=== PATIENT | male | born 1930 | race Caucasian/White ===

== ENCOUNTER 2019-03-10 21:25 | Emergency (ER) | payer MEDICARE, BC ==
[~2019-03-10] VITALS: Ht 172.7 cm; Wt 81.6 kg
[~2019-03-10 21:25] MED LIST: AMOX500C2 PO; ATORVASTATIN; NORVASC; SOTOLOL; WARFARIN
--- NOTE | 2019-03-10 22:10 | NUR ---
Patient ambulated with stable gait. Speech clear, speaks in complete sentences. Relatives at bedside for interpretation. A/Ox4. No neuro deficits. Patient came for c/o fever s/p dental work on Saturday. Per relative, patient developed a fever of 102F on saturday, and fever-like symptoms have been intermittent. Respiratory even and unlabored, no cough no sob. No cardiovascular distress noted. No GI/ distress noted. Patient in bed at lowest position, sr upx2, call light within reach. Fall precautions implemented per protocol. Two relatives at bedside.
--- NOTE | 2019-03-10 22:11 | NUR ---
ERMD at bedside for eval
[2019-03-10] MEDS ORDERED: CEFTRIAXONE 1 G in IV DEXTROSE 5% 50 ML IV ONE (22:30)
[2019-03-10] MEDS ORDERED: IV NORMAL SALINE 1000 ML BAG IV ONE (22:30)
[2019-03-10] MEDS ORDERED: CEFTRIAXONE 1 G VIAL ONE (22:40)
--- NOTE | 2019-03-10 23:31 | NUR ---
Patient discharged to home in stable conditon. Written and verbal after care instructions given. Patient verbalizes understanding of instructions. Patient ambulated with stable gait.
[2019-03-10 23:32] VITALS: BP 139/63
== END 2019-03-10 23:36 | disposition home or self-care (01) ==
LOC: ER 21:25
DX: R50.9 Fever, unspecified (principal); I10 Essential (primary) hypertension; E78.00 Pure hypercholesterolemia, unspecified; Z95.0 Presence of cardiac pacemaker; Z79.2 Long term (current) use of antibiotics; Z79.899 Other long term (current) drug therapy
CPT/HCPCS: 36415; 71045; 83605; 87040; 96374; 99284; J0696; J7060; A4663; J7030